=== PATIENT | female | born 2000 | race Caucasian/White ===

== ENCOUNTER → 2018-04-19 | Outpatient (CLI) | payer BC, OTHER ==
[~2018-04-19] MED LIST: 00186-0372-20 IH; ASTHMA MED; ATIVAN 0.50.5 MG/TAB PO; NEXIUM 40MG40 MG PO; VENTOLIN0.09 MG IH
== END ==
LOC: COL.RAD 12:45
DX: L02.31 Cutaneous abscess of buttock (principal)